=== PATIENT | male | born 1955 | race Caucasian/White ===

== ENCOUNTER → 2016-05-23 | Day surgery (SDC) | payer BC ==
[~2016-05-23] MED LIST: BARACLUDE0.5 MG PO; FERRO-TIME325 MG PO; HYDROCODON-ACE1 EAC7 PO; KEFLEX PO; LACTULOSE10 G/15 M1 PO; LASIX20 MG PO; NEXIUM PO; NO MEDICATIONS; OMEPRAZOLE40 M1 PO; PROTONIX PO; SPIRONOLACTONE100 MG PO; SPIRONOLACTONE50 MG PO; ULTRAM PO; VITAMIN C250 M1 PO; XIFAXAN550 MG PO
--- NOTE | ~2016-05-23 | OR ---
Unit #: [id number] #: [id number] Patient: ART MOSLEY [id number] [address] [place], [place] [address] [id number] O MR#: [id number] NAME: ART MOSLEY ROOM: Date of Procedure: 05/23/2016 Admission Date: 05/23/2016 Surgeon: Rancho Garcia M.D. : 1955 Attending Physician: Rancho Garcia M.D. Primary Care Physician: Samy Sharpe M.D. OPERATIVE REPORT ATTENDING PHYSICIAN Dr. Samy Sharpe. PREOPERATIVE DIAGNOSES The patient has underlying hepatitis C related cirrhosis and has come for elective upper endoscopy and esophageal variceal band ligation. PROCEDURES PERFORMED Upper gastrointestinal endoscopy and biopsy. POSTOPERATIVE DIAGNOSES 1. Previously seen esophageal varices are quite attenuated and are barely seen in the mid esophagus, they are straight. No varices are seen in the distal esophagus. There was no reason or indication for banding at present time. 2. The patient had changes of portal hypertensive gastropathy with classic reticular appearance of the mucosa in the fundus of the stomach. 3. Focal gastritis in the antral area with erythema, erosions, and a polyp in this area. A biopsy was obtained from this area for CLOtest. Rest of the examination up to third part of duodenum was normal. RECOMMENDATIONS The patient does not require esophageal variceal bending at the present time. A repeat endoscopy is warranted in a year. SEDATION USED MAC. DESCRIPTION OF PROCEDURE Following detailed explanation of potential risks and complications of an upper endoscopy, namely perforation, bleeding, and complications related to sedation, the patient was brought to GI lab and laid in the left lateral decubitus position. Lubricated tip of the Olympus video upper endoscope was passed through the bite block into the proximal esophagus under direct vision. The entire esophageal mucosa was examined. The patient did have esophageal varices. These were quite attenuated, in fact they were only present in mid esophagus and they were quite straight. There were no varices in the distal esophagus. These were grade 1 varices at best. There was no esophagitis or hiatus hernia. The scope was then advanced into the gastric cavity and the latter was insufflated. Mucosa of the fundus, body, and antrum was examined and changes of portal Unit #: [id number] #: [id number] Patient: ART MOSLEY hypertensive gastroscopy were seen in the gastric fundus and cardia. These were in the form of reticular appearance of the mucosa. Prepyloric antral area had focal erosions and benign polyp. Pylorus was intubated with visualization of the normal duodenal bulb and second and third part of the duodenum. Upon withdrawal and retroflexion, incisura, cardia, and greater curve was examined and no additional findings were noted. Biopsies were obtained from the antrum for CLOtest. The scope was then withdrawn in the distal esophagus. The entire esophageal mucosa was examined all the way up to pharynx. No additional findings were noted. The patient tolerated the procedure without any postprocedure complications. Dictated by... Andreas Jeronimo TD: 05/23/2016 10:56 JOB #: [id number] OPERATIVE REPORT X Rancho Garcia MD X PROCEDURE OPERATIVE NOTE
[2016-05-23 09:13] LABS: BASOPHIL% 0.3 % (0-2.5); EOSINOPHIL# 0.1 X10e3 (0-0.7); EOSINOPHIL% 2.1 % (0.0-7.0); HEMATOCRIT 38.4 % (38.0-50.0); HEMOGLOBIN 12.7 gm/dL (13.0-16.0); LYMPHOCYTE# 0.4 X10e3 (1.0-3.5); LYMPHOCYTE% 8.5 % (17.0-45.0); MEAN CELL VOLUME 95.3 FL (83-96); MEAN CORPUSCULAR HEMOGLOBIN 31.4 PG (28-34); MEAN PLATELET VOLUME 12.1 FL (6.5-11.5); MONOCYTE# 0.5 X10e3 (0-1.0); MONOCYTE% 11.1 % (3.0-12.0); NEUTROPHIL# 3.7 X10e3 (1.5-7.1); RED BLOOD COUNT 4.03 X10e (3.90-5.60); RED CELL DISTRIBUTION WIDTH 14.4 % (11.0-15.5); WHITE BLOOD COUNT 4.8 X10e3 (4.0-10.5)
[2016-05-23 09:17] LABS: DIFF IND YES; PLATELET COUNT 48 X10e3 (140-420)
[2016-05-23 09:24] LABS: INR 1.3; PROTHROMBIN TIME (PATIENT) 13.7 SECONDS (9.6-11.5)
[2016-05-23 09:43] LABS: PLATELET ESTIMATE DECREASED (NORMAL)
[2016-05-23 09:45] LABS: ALBUMIN SERUM 2.7 g/dL (3.5-5.0); ALKALINE PHOSPHATASE 95 U/L (32-92); ALT (SGPT) 33 U/L (10-40); AST (SGOT) 44 U/L (10-42); BILIRUBIN,TOTAL 3.2 mg/dL (0.2-2.0); BLOOD UREA NITROGEN 14 mg/dL (9-23); BUN/CREATININE RATIO 12.72; CALCIUM SERUM 8.4 mg/dL (8.4-10.2); CARBON DIOXIDE 23 mmol/L (22-31); CHLORIDE 104 mmol/L (100-111); CREATININE SERUM 1.1 mg/dL (0.6-1.4); GLOM FILT RATE Estimated ABOVE60 mL/min (>60); GLUCOSE FASTING 99 mg/dL (70-110); POTASSIUM 3.8 mmol/L (3.5-5.1); PROTEIN TOTAL SERUM 5.9 g/dL (6.0-8.3); SODIUM 136 mmol/L (135-145)
== END | disposition home or self-care (01) ==
LOC: COPS 06:34
PROVIDERS: Internal Medicine Gastroenterology
DX: B19.20 Unspecified viral hepatitis C without hepatic coma (principal); K74.69 Other cirrhosis of liver; I85.10 Secondary esophageal varices without bleeding; K76.6 Portal hypertension; K31.89 Other diseases of stomach and duodenum; K29.60 Other gastritis without bleeding; K21.9 Gastro-esophageal reflux disease without esophagitis; M19.90 Unspecified osteoarthritis, unspecified site; F17.220 Nicotine dependence, chewing tobacco, uncomplicated; Z88.2 Allergy status to sulfonamides; Z88.6 Allergy status to analgesic agent; Z88.8 Allergy status to other drugs, medicaments and biological substances
CPT/HCPCS: 80053; 85025; 85610; 87077

== ENCOUNTER → 2016-09-12 | Outpatient (CLI) | payer BC ==
--- NOTE | ~2016-09-12 | US5 ---
[facility] A Service of [facility] RADIOLOGY TEXT RESULTS PATIENT: ART MOSLEY LOCATION: [facility] : 57 UNIT #: [id number] AGE: [address]: Chivo Nunez MD SEX: M ORDER DR: [id number] [facility] [address] [place], [place] [address] [id number] O MR#: [id number] Acc #: [id number] NAME: ART MOSLEY. : 1955 SEX: M STUDY DATE/TIME: 09/12/2016 8:45 UNIT: [facility] ROOM: STUDY DESCRIPTION: US Abdominal Complete Attending Physician: Chivo Nunez III, M.D. Referring Physician: Chivo Nunez III, M.D. Ordering Physician: Chivo Nunez III, M.D. Primary Care Physician: [facility] IMAGING REPORT This report is preliminary unless electronic signature is present EXAM Abdominal ultrasound complete 09/12/2016 HISTORY Hepatitis B virus. TECHNIQUE Real time ultrasonography of the abdomen performed. COMPARISON MRI 04/01/2016 and ultrasound 02/22/2016 FINDINGS Right kidney measures 9.15 cm in greatest length. There is no hydronephrosis or nephrolithiasis. No cystic or solid mass lesion and no perinephric fluid collection. The inferior cava is patent. The proximal aorta measures about 1.9 cm in diameter. The mid aorta measures approximately 1.7 cm in maximum diameter and the distal aorta measures approximately 1.6 cm in diameter. Flow seen throughout the visualized aorta. The spleen is enlarged measuring about 13 cm in maximum diameter. Appears slightly less pronounced than on prior study when it measured 15 cm in maximum diameter. No focal splenic abnormality is seen. The left kidney measures 9.99 cm in greatest length. No hydronephrosis or nephrolithiasis. Incomplete visualization of upper pole cyst seen on prior MRI March 2016. The visualized portions of the pancreas are unremarkable. 2 subcentimeter cysts were seen in the pancreas on prior MRI 04/01/2016. 12-month MRI followup was recommended. Please see that MRI study for full characterization. The portal vein is patent with normal direction of flow. The liver is somewhat nodular in configuration and heterogeneous in echotexture. The hypoechoic focus seen in the right hepatic lobe on the prior examination 02/22/2016, is not well demonstrated on today's examination. It is not confirmed on interval MRI. No focal suspicious parenchymal abnormality is seen. There are multiple shadowing STS. [facility] A Service of [facility] RADIOLOGY TEXT RESULTS PATIENT: ART MOSLEY LOCATION: [facility] : 57 UNIT #: [id number] AGE: [address]: Chivo Nunez MD SEX: M ORDER DR: gallstones. No gallbladder wall thickening. Gallbladder wall measures 1.7 mm in thickness. There is no pericholecystic fluid. No intra or extrahepatic biliary ductal dilatation. Common bile duct measures 4.3 mm in diameter. IMPRESSION 1. Cirrhotic morphology of liver without suspicious focal hepatic parenchymal abnormalities seen. The hypoechoic focus seen in the right hepatic lobe on prior examination not clearly identified on today's ultrasound. It was not seen on an interval MRI either. 2. Shadowing gallstones. No acute appearing gallbladder abnormality. No biliary ductal dilatation. 3. No acute renal findings. No evidence of calculi or obstruction. Upper pole left renal cyst as on prior MRI. 4. Small amount of ascites adjacent to the liver. 5. Mild splenomegaly, slightly less pronounced than on prior ultrasound. 6. Pancreas poorly visualized due to bowel gas obscuration. Please see MRI 04/01/2016, for discussion of small pancreatic cysts and followup recommendations. Dictated by... Ramana Porras M.D. THIS IS AN ELECTRONICALLY VERIFIED REPORT Ramana Porras M.D. at 09/14/2016 11:34 AM WAYNE/jad TD: 09/13/2016 09:36 JOB #: [id number] MEDICAL IMAGING REPORT Page 1 of 1 COPY
== END | disposition home or self-care (01) ==
LOC: CGUS 08:22
DX: B19.10 Unspecified viral hepatitis B without hepatic coma (principal); K80.20 Calculus of gallbladder without cholecystitis without obstruction; N28.1 Cyst of kidney, acquired; R18.8 Other ascites; R16.1 Splenomegaly, not elsewhere classified
CPT/HCPCS: 76700